=== PATIENT | female | born 1970 | race Caucasian/White ===

== ENCOUNTER → 2023-04-04 | Outpatient (REF) | payer BC ==
[2023-04-04 17:25] LABS: PERCENT SATURATION 9.9 % (13.2-45.0)
[2023-04-04 17:26] LABS: FERRITIN 11.9 NG/ML (7.3-270.7)
== END ==
LOC: M LAB REF 16:37
PROVIDERS: ATTEND Internal Medicine
DX: R53.81 Other malaise (principal); R53.83 Other fatigue

== ENCOUNTER → 2024-02-24 | Outpatient (REF) | payer BC ==
[2024-02-24 14:36] LABS: PERCENT SATURATION 16.8 % (13.2-45.0)
[2024-02-24 14:39] LABS: FERRITIN 10.5 NG/ML (7.3-270.7)
== END ==
LOC: M LAB REF 13:12
PROVIDERS: ATTEND Internal Medicine
DX: R53.81 Other malaise (principal)